=== PATIENT | male | born 1940 | race Caucasian/White ===

== ENCOUNTER → 2024-05-13 | Outpatient (CLI) | payer MEDICARE ==
[~2024-05-13] MED LIST: AMLO-258 PO; APAL240T PO; BUME1TAB6 PO; CARV12.511 PO; ESCI5TAB16 PO; IOHEXOL 350 MG/ML 100ML INFUS..BTL IV ONE; IRBE300T26 PO; LEVO200C2 PO; LEVO25CA4 PO; SILV25CR23 TP
== END | disposition home or self-care (01) ==
LOC: RAH 10:15
PROVIDERS: ATTEND Student in an Organized Health Care Education/Training Program
DX: I11.9 Hypertensive heart disease without heart failure (principal)
CPT/HCPCS: Q9967